=== PATIENT | male | born 1950 | race American Indian/Alaskan Native ===

== ENCOUNTER 2017-10-28 12:30 | Emergency (ER) | payer OTHER ==
[2017-10-28] MEDS ORDERED: NORCO 5/325 PO ONE (13:10)
[2017-10-28] MEDS ORDERED: BOOSTRIX IM ONE (13:10)
[2017-10-28] MEDS ORDERED: POLYSPORIN TP ONE (13:11)
--- NOTE | 2017-10-28 13:20 | Emergency Department Report ---
HPI - General Chief Complaint: Fall Time Seen by Provider: 10/28/17 12:56 - HPI HPI: Room 7 The patient is a 67-year-old male presenting with a chief complaint of pain after fall. The patient states today while getting out of his car he misstepped and fell landing on the ground striking his left chest and left elbow. Patient denies head trauma or loss of consciousness. Patient complains of pain to the left chest, neck and left elbow. The patient gives his pain a score of 8/10. Location: [See above] Duration: [See above] Quality: Pain Severity: 8/10 Modifying factors: [see above] Context: [see above] Mode of transportation: [not driving] ED Past Medical Hx - Past Medical History Previous Medical History?: Yes Hx Hypertension: Yes - Surgical History Past Surgical History?: Yes Hx Open Heart Surgery: Yes (triple bypass) - Family History Family history: no significant - Social History Smoking Status: Former Smoker (none since 1995) Substance Use Type: None ED Review of Systems ROS: Stated complaint: SHORTNESS OF BREATH Other details as noted in HPI Constitutional: no symptoms reported Eyes: denies: eye pain ENT: denies: throat pain Respiratory: no symptoms reported Cardiovascular: chest pain Endocrine: no symptoms reported Gastrointestinal: denies: abdominal pain Genitourinary: denies: dysuria Musculoskeletal: myalgia Skin: other (left elbow abrasion) Neurological: denies: headache Physical Exam - Physical Exam Vital Signs: Vital Signs 10/28/17 10/28/17 12:48 12:57 Temperature 97.7 F Pulse Rate 66 Respiratory 16 16 Rate Blood Pressure 117/66 O2 Sat by Pulse 96 96 Oximetry Physical Exam: GENERAL: The patient is well-developed well-nourished male lying on stretcher not appear to be in acute distress. [] HEENT: Normocephalic. Atraumatic. Extraocular motions are intact. Patient has moist mucous membranes. NECK: Supple. No axial step-offs but there is axial tenderness to palpation CHEST/LUNGS: Clear to auscultation. There is no respiratory distress noted. HEART/CARDIOVASCULAR: Regular. There is no tachycardia. There is no gallop rub or murmur. ABDOMEN: Abdomen is soft, nontender. Patient has normal bowel sounds. There is no abdominal distention. SKIN: There is an abrasion to the left elbow. There is no diaphoresis. NEURO: The patient is awake, alert, and oriented. The patient is cooperative. The patient has normal speech MUSCULOSKELETAL: There is tenderness of the left elbow ED Course Vital Signs 10/28/17 10/28/17 12:48 12:57 Temperature 97.7 F Pulse Rate 66 Respiratory 16 16 Rate Blood Pressure 117/66 O2 Sat by Pulse 96 96 Oximetry - Consultations Consultation #1: 10/28/17 15:30 Surgery paged 10/28/17 15:[address] Oh- recommends transfer to [facility] as they are able to offer rib plating if the need arises Consultation #2: 10/28/17 15:46 [facility] transfer line called 10/28/17 15:50 Patient accepted in transfer to [facility] ED ED Medical Decision Making - Lab Data Result diagrams: 10/28/17 13:35 10/28/17 13:35 Laboratory Tests 10/28/17 10/28/17 13:35 13:35 WBC 6.0 RBC 4.66 Hgb 12.4 Hct 37.9 MCV 81 L MCH 27 L MCHC 33 RDW 14.9 Plt Count 144 Lymph % (Auto) 14.9 [place] % (Auto) 11.3 H Eos % (Auto) 1.4 Baso % (Auto) 0.4 Lymph # 0.9 L [place] # 0.7 Eos # 0.1 Baso # 0.0 Seg Neutrophils % 72.0 H Seg Neutrophils # 4.4 Sodium 142 Potassium 4.2 Chloride 104.4 Carbon Dioxide 25 Anion Gap 17 BUN 14 Creatinine 0.9 Estimated GFR > 60 BUN/Creatinine Ratio 16 Glucose 107 H Calcium 8.9 Total Creatine Kinase 613 H CK-MB (CK-2) 9.1 H CK-MB (CK-2) Rel Index 1.4 Troponin T < 0.010 - EKG Data -: EKG Interpreted by Ma EKG shows normal: sinus rhythm Rate: normal - EKG Data When compared to previous EKG there are: previous EKG unavailable Interpretation: nonspecific ST-T wave karen (T-wave inversion in lead V2), other ( right bundle branch block.) - Radiology Data Radiology results: report reviewed (CT cervical spine, CT chest), image reviewed (CT cervical spine, CT chest) [facility] [address] [place] [address] Cat Scan Report Signed Patient: RASHMI SCHWARTZ MR#: [id number] : 1950 Acct:[id number] Age/Sex: 67 / M ADM Date: 10/28/17 Loc: ED Attending Dr: Ordering Physician: ROSENDO HANEY MD Date of Service: 10/28/17 Procedure(s): CT chest wo con Accession Number(s): [id number] cc: ROSENDO HANEY MD CT CHEST WITHOUT CONTRAST: HISTORY: Left chest pain after fall. COMPARISON: none. TECHNIQUE: Helical CT in 1.25mm intervals without IV contrast. Sagittal and coronal reformatted images. FINDINGS: Thyroid gland: Normal. Tracheobronchial tree: Normal. Esophagus: Normal. Heart: Borderline to mild cardiomegaly. Three-vessel coronary artery calcifications. Pericardium: Normal. Mediastinum: Normal. Lung Millan: Normal. Pleural Spaces: Normal. Musculoskeletal: Left anterior rib fractures are identified at levels 4 and 5. Left posterior lateral rib fractures are identified at levels 5-9. The remaining bony structures are intact. Mild thoracic spondylosis and scoliosis is noted. IMPRESSION: Multiple left rib fractures as described. Borderline to mild cardiomegaly. Transcribed By : TTR Dictated By: MAGY ZULUAGA JR, MD Electronically Authenticated By: MAGY ZULUAGA JR, MD Signed Date/Time: 10/28/171457 DD/ 56 TD/TT: 10/28/171457 [facility] [address] [place] [address] Cat Scan Report Signed Patient: RASHMI SCHWARTZ MR#: [id number] : 1950 Acct:[id number] Age/Sex: 67 / M ADM Date: 10/28/17 Loc: ED Attending Dr: Ordering Physician: ROSENDO HANEY MD Date of Service: 10/28/17 Procedure(s): CT cervical spine wo con Accession Number(s): [id number] cc: ROSENDO HANEY MD CT SCAN OF THE CERVICAL SPINE: HISTORY: Pain after follow. TECHNIQUE: Contiguous 1.25 mm axial images of the cervical spine were obtained. Sagittal and coronal reformatted images. FINDINGS: There is normal alignment of the cervical spine. The body, pedicles and posterior ligaments appear normal. No evidence of fracture or subluxation is seen. Moderate multilevel degenerative disc disease and facet arthropathy are identified. All levels are affected. The spinal canal appears normal. The prevertebral soft tissues appear normal. IMPRESSION: Cervical spondylosis. No acute process is noted. Transcribed By: TTR Dictated By : MAGY ZULUAGA JR, MD Electronically Authenticated By: MAGY ZULUAGA JR, MD Signed Date/Time: 10/28/171455 DD/ 54 TD/TT: 10/28/171455 - Differential Diagnosis rib fracture, pneumothorax, cervical strain, cervical fracture Critical care attestation.: If time is entered above; I have spent that time in minutes in the direct care of this critically ill patient, excluding procedure time. ED Disposition Clinical Impression: Multiple fractures of ribs, left side, initial encounter for closed fracture, Acute chest wall pain, Abrasion of left elbow, Cervical strain, acute Disposition: DC/TX-70 ANOTHER TYPE HLTHCARE Is pt being admited?: No Does the pt Need Aspirin: No Condition: Fair Instructions: Chest Pain (ED) Referrals: PRIMARY CARE, [Primary Care Provider] - 3-5 Days Time of Disposition: 15:52 (patient accepted at [place]. Awaiting transport)
[2017-10-28 14:03] LABS: Basophils % (Auto) 0.4 % (0.0-1.8); Eosinophils # (Auto) 0.1 K/mm3 (0.0-0.4); Eosinophils % (Auto) 1.4 % (0.0-4.3); Hematocrit 37.9 % (35.5-45.6); Hemoglobin 12.4 gm/dl (11.8-15.2); Lymphocytes # (Auto) 0.9 K/mm3 (1.2-5.4); Lymphocytes % (Auto) 14.9 % (13.4-35.0); Mean Corpuscular HGB Conc 33 % (32-34); Mean Corpuscular Hemoglobin 27 pg (28-32); Mean Corpuscular Volume 81 fl (84-94); Monocytes # (Auto) 0.7 K/mm3 (0.0-0.8); Monocytes % (Auto) 11.3 % (0.0-7.3); Platelet Count 144 K/mm3 (140-440); Red Blood Count 4.66 M/mm3 (3.65-5.03); Red Cell Distribution Width 14.9 % (13.2-15.2)
[2017-10-28 14:11] LABS: BUN/Creatinine Ratio 16; Blood Urea Nitrogen 14 mg/dL (9-20); Calcium 8.9 mg/dL (8.4-10.2); Creatine Kinase MB 9.1 ng/mL (0.0-4.0); Hemolysis Index 8
--- NOTE | 2017-10-28 15:02 | Cat Scan Report ---
CT SCAN OF THE CERVICAL SPINE: HISTORY: Pain after follow. TECHNIQUE: Contiguous 1.25 mm axial images of the cervical spine were obtained. Sagittal and coronal reformatted images. FINDINGS: There is normal alignment of the cervical spine. The body, pedicles and posterior ligaments appear normal. No evidence of fracture or subluxation is seen. Moderate multilevel degenerative disc disease and facet arthropathy are identified. All levels are affected. The spinal canal appears normal. The prevertebral soft tissues appear normal. IMPRESSION: Cervical spondylosis. No acute process is noted.
--- NOTE | 2017-10-28 15:05 | Cat Scan Report ---
CT CHEST WITHOUT CONTRAST: HISTORY: Left chest pain after fall. COMPARISON: none. TECHNIQUE: Helical CT in 1.25mm intervals without IV contrast. Sagittal and coronal reformatted images. FINDINGS: Thyroid gland: Normal. Tracheobronchial tree: Normal. Esophagus: Normal. Heart: Borderline to mild cardiomegaly. Three-vessel coronary artery calcifications. Pericardium: Normal. Mediastinum: Normal. Lung Millan: Normal. Pleural Spaces: Normal. Musculoskeletal: Left anterior rib fractures are identified at levels 4 and 5. Left posterior lateral rib fractures are identified at levels 5-9. The remaining bony structures are intact. Mild thoracic spondylosis and scoliosis is noted. IMPRESSION: Multiple left rib fractures as described. Borderline to mild cardiomegaly.
--- NOTE | 2017-10-28 15:15 | XRay Report ---
LEFT ELBOW 2 VIEWS: 10/28/17 12:30:00 CLINICAL: Pain after fall. FINDINGS: A true lateral view is not included and this likely is related to limited range of motion in positioning. AP and oblique views are negative. No obvious pleural effusion. Normal soft tissues. IMPRESSION: A negative but somewhat limited examination because of less than optimum positioning of the lateral view. MTDD
[2017-10-28 16:46] VITALS: BP 129/75
== END 2017-10-28 19:10 | disposition other institution (70) ==
LOC: ED 12:30
DX: S22.42XA Multiple fractures of ribs, left side, initial encounter for closed fracture (principal); S16.1XXA Strain of muscle, fascia and tendon at neck level, initial encounter; S50.312A Abrasion of left elbow, initial encounter; R07.89 Other chest pain; I10 Essential (primary) hypertension; Z87.891 Personal history of nicotine dependence; Z88.8 Allergy status to other drugs, medicaments and biological substances; V48.4XXA Person boarding or alighting a car injured in noncollision transport accident, initial encounter; Y93.89 Activity, other specified; Y99.8 Other external cause status; Y92.89 Other specified places as the place of occurrence of the external cause
CPT/HCPCS: 36415; 71250; 72125; 80048; 82550; 82553; 84484; 85025; 90471; 90715; 93005; 93010